=== PATIENT | male | born 1995 | race Caucasian/White ===

== ENCOUNTER 2017-11-26 20:56 | Emergency (ER) | payer OTHER ==
[~2017-11-26] VITALS: Ht 185.4 cm; Wt 83.9 kg
[2017-11-26] MEDS ORDERED: fentaNYL INJECTION 100 MCG/2 ML AMP IVP ONE (22:15)
--- NOTE | 2017-11-26 22:24 | ED Lower Extremity ---
General Chief Complaint: Lower Extremity Stated Complaint: RIGHT FOOT INJ Nursing Triage Note: pt reports he smashed his right foot between a pallet steven et a pole. swelling noted. limited rom due to swelling. Source: patient Exam Limitations: no limitations History of Present Illness Date Seen by Provider: Nov 26, 2017 Time Seen by Provider: 21:57 Initial Comments Patient presents to the emergency room with crush injury to the right foot. 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 He has significant swelling, erythema, and pain to the entire right foot. He retains sensation and movement of the toes. He is able to bear weight. He reports improvement in swelling and pain since the time of injury. Allergies and Home Medications Allergies Coded Allergies: No Known Drug Allergies (Unverified , 11/26/17) Home Medications No Active Prescriptions or Reported Meds Patient Home Medication List Home Medication List Reviewed: Yes Constitutional: no symptoms reported EENTM: no symptoms reported Respiratory: no symptoms reported Cardiovascular: no symptoms reported Gastrointestinal: no symptoms reported Genitourinary: no symptoms reported Musculoskeletal: see HPI Skin: see HPI Psychiatric/Neurological: No Symptoms Reported Past Cfrytrt-Gqydiq-Nvgkss Hx Patient Social History Alcohol Use: Denies Use Recreational Drug Use: No Smoking Status: Never a Smoker Recent Foreign Travel: No Contact w/Someone Who Travel: No Recent Infectious Disease Expo: No Recent Hopitalizations: No Seasonal Allergies Seasonal Allergies: No Surgeries History of Surgeries: No Respiratory History of Respiratory Disorde: No Cardiovascular History of Cardiac Disorders: No Neurological History of Neurological Disord: No Genitourinary History of Genitourinary Disor: No Gastrointestinal History of Gastrointestinal Di: No Musculoskeletal History of Musculoskeletal Dis: No Endocrine History of Endocrine Disorders: No HEENT History of HEENT Disorders: No Cancer History of Cancer: No Psychosocial History of Psychiatric Problem: No Integumentary History of Skin or Integumenta: No Physical Exam Vital Signs Vital Signs - First Documented 11/26/17 21:30 Temp 98.0 Pulse 77 Resp 14 B/P (MAP) 135/69 Pulse Ox 100 O2 Delivery Room Air Capillary Refill : General Appearance: WD/WN, no apparent distress HEENT: normal ENT inspection Neck: normal inspection Cardiovascular: regular rate, rhythm, no edema, no murmur Respiratory: lungs clear, normal breath sounds, no respiratory distress Legs: right leg non-tender, right leg normal inspection, right leg normal range of motion, right leg no evidence of injury Knees: right knee non-tender, right knee normal inspection, right knee normal range of motion, right knee no evidence of injury Ankles: right ankle non-tender, right ankle normal inspection, right ankle normal range of motion, right ankle no evidence of injury Feet: right foot bone tenderness (mid dorsum of foot), right foot limited range of motion, right foot pain, right foot soft tissue tenderness, right foot swelling, right foot other (There is swelling, erythema, and tenderness involving the entire right foot. Tenderness is focused over the mid dorsum area. Capillary refill and sensation are intact. Range of motion in the toes is intact.) Neurologic/Psychiatric: inspector advanced composite II-XII nml as tested, no motor/sensory deficits, alert, normal mood/affect, oriented x 3 Skin: normal color, warm/dry, other (Erythema of the foot) Progress/Results/Core Measures Results/Orders My Orders Orders - ARELIS CAMPOS MD Foot, Right, 3 View (11/26/17 22:00) Fentanyl Injection (Sublimaze Injection (11/26/17 22:15) Ibuprofen Tablet (Motrin Tablet) (11/26/17 22:30) Vital Signs/I&O Vital Sign - Last 12Hours 11/26/17 11/26/17 21:30 22:33 Temp 98.0 Pulse 77 76 Resp 14 18 B/P (MAP) 135/69 Pulse Ox 100 99 O2 Delivery Room Air Progress Note : Progress Note Patient was referred requesting ibuprofen which was administered. Occupational health paperwork was completed. Patient was fitted with crutches. Diagnostic Imaging Diagonstic Imaging: Xray Plain Films/CT/US/NM/MRI: other (Foot) Comments X-ray of the right foot viewed by me. Report not yet available. No acute abnormalities appreciated suggesting bony injury. Soft tissue swelling noted. Departure Impression Impression: Primary Impression: Crush injury of right foot Qualified Codes: S97.81XA - Crushing injury of right foot, initial encounter Disposition: HOME, SELF-CARE Condition: Improved Departure-Patient Inst. Decision time for Depature: 22:15 Referrals: NO,LOCAL PHYSICIAN (PCP) Primary Care Physician Patient Instructions: Crush Injury Add. Discharge Instructions: Elevate to the level of the heart as much as possible. Ice in 20 minute intervals. Use crutches as necessary as pain dictates. Gradually increase level of activity as pain allows. Follow-up with occupational health as soon as possible. Return to the emergency room if you have any complications. You may take ibuprofen up to 600 mg every 6 hours as needed for pain. Add Tylenol ( acetaminophen) up to 1000 mg every 6 hours as needed for additional pain relief. All discharge instructions reviewed with patient and/or family. Voiced understanding. Scripts No Active Prescriptions or Reported Meds ARELIS CAMPOS MD Nov 26, 2017 22:24
[2017-11-26] MEDS ORDERED: IBUPROFEN TABLET 200 MG TAB PO ONE (22:30)
--- NOTE | 2017-11-27 06:02 | Diagnostic Imaging Report ---
INDICATION: Foot pain. Swelling. COMPARISON: None. FINDINGS: 3 views of the right foot demonstrate no acute fracture or dislocation. There are no focal osseous lesions. There is mild to moderate soft tissue swelling. Joint spaces are well maintained. No radiopaque foreign bodies are seen. IMPRESSION: Mild to moderate soft tissue swelling of the right foot, but no radiographic evidence of acute fracture or dislocation. Dictated by: Dictated on workstation # [id number]
== END 2017-11-26 22:33 | disposition home or self-care (01) ==
LOC: ER 20:59
DX: S97.81XA Crushing injury of right foot, initial encounter (principal); W22.09XA Striking against other stationary object, initial encounter
CPT/HCPCS: 73630

== ENCOUNTER 2020-12-16 22:14 | Emergency (ER) | payer BC, OTHER ==
[~2020-12-16] VITALS: Ht 185.5 cm; Wt 79.4 kg
[2020-12-16 22:22] VITALS: BP 142/83
[2020-12-16] MEDS ORDERED: ONDANSETRON 4 MG (ZOFRAN) ORAL DISSOLVE TAB SL STA (22:29)
--- NOTE | 2020-12-16 22:35 | ED General ---
General Chief Complaint: General Problems/Pain Stated Complaint: INHALED DRY ICE - N/V HEADACHE Source of Information: Patient History of Present Illness Date Seen by Provider: Dec 16, 2020 Time Seen by Provider: 22:22 Initial Comments PT ARRIVES VIA POV FROM WORK WITH GIRLFRIEND PT STATES HE WAS AT WORK AT [employer], AND 15-20 MINUTES AGO, HE " INHALED SOME DRY ICE" AND IMMEDIATELY BEGAN HAVING NAUSEA AND VOMITING AND A HEADACHE, SOON IT HAPPENED STATES HE WAS WEARING A CLOTH MASK FROM HOME, THAT COVERED NOSE AND MOUTH AT THE TIME STATES HE WALKED BY AN AREA WHERE THEY WERE SCOOPING UP DRY ICE AND PUTTING IT ON LOPEZ AND THERE WAS "SMOKE" FROM THE DRY ICE AND HE BREATHED IN SOME OF THE "SMOKE" STATES THE AREA WAS A BIG ROOM, AND NOT A SMALL/ENCLOSED SPACE NO DIFFICULTY BREATHING OR COUGHING STATES HE HAS VOMITED 7-8 TIMES RATES HIS HEADACHE 03/24 NO DIARRHEA NO ABDOMINAL PAIN NO FEVER OR RECENT ILLNESS NO HISTORY OF SIMILAR NO ONE ELSE WITH SAME SYMPTOMS, INCLUDING CO-WORKERS--STATES CO-WORKERS THAT WERE WORKING DIRECTLY WITH THE DRY ICE, WERE WEARING SURGICAL-TYPE MASKS. ATE APPROXIMATELY 1 HOUR AGO--BEEF BURRITOS. GIRLFRIEND ATE SAME AND SHE IS NOT ILL. STATES HE WAS FINE PRIOR TO THIS DENIES ANY MEDICAL PROBLEMS PT STATES HE WAS NOT SENT HERE BY HIS WORK AND DOES NOT WANT TO FILE WITH WORKMAN'S COMP PCP: MALA Allergies and Home Medications Allergies Coded Allergies: No Known Drug Allergies (Unverified , 11/26/17) Home Medications No Active Prescriptions or Reported Meds Patient Home Medication List Home Medication List Reviewed: Yes Review of Systems Review of Systems Constitutional: no symptoms reported EENTM: no symptoms reported Respiratory: no symptoms reported Cardiovascular: no symptoms reported Gastrointestinal: see HPI; No abdominal pain, No diarrhea; nausea, vomiting Genitourinary: no symptoms reported Musculoskeletal: no symptoms reported Skin: no symptoms reported Psychiatric/Neurological: See HPI, Headache Hematologic/Lymphatic: No Symptoms Reported Immunological/Allergic: no symptoms reported Past Ycrodti-Keuuxe-Jcbtyl Hx Past Med/Social Hx: Reviewed and Corrections made Patient Social History Alcohol Use: Denies Use Drug of Choice: DENIES Smoking Status: Never a Smoker Recent Hopitalizations: No Seasonal Allergies Seasonal Allergies: No Past Medical History Surgeries: No Respiratory: No Cardiac: No Neurological: No Genitourinary: No Gastrointestinal: No Musculoskeletal: No Endocrine: No HEENT: No Cancer: No Psychosocial: No Integumentary: No Blood Disorders: No Physical Exam Vital Signs Vital Signs - First Documented 12/16/20 22:22 Temp 36.4 Pulse 76 Resp 18 B/P (MAP) 142/83 (102) Pulse Ox 96 O2 Delivery Room Air Capillary Refill : Height, Weight, BMI Height: 6'1.00" Weight: 185lbs. oz. 83.755334bs; 21.09 BMI Method:Stated General Appearance: No Apparent Distress, WD/WN, Other (FLAT AFFECT, DOES NOT MAKE EYE CONTACT. HOLDS HEAD DOWN. DOES NOT APPEAR TO BE IN ANY DISCOMFORT OR DISTRESS) HEENT: PERRL/EOMI, Normal ENT Inspection Neck: Normal Inspection Respiratory: Normal Breath Sounds, No Accessory Muscle Use, No Respiratory Distress Cardiovascular: Regular Rate, Rhythm Gastrointestinal: Non Tender, Soft Extremity: Normal Inspection Neurologic/Psychiatric: Alert, Oriented x3, No Motor/Sensory Deficits, maintenance planning clerk II- XII Norm as Tested Skin: Normal Color (PT IS ), Warm/Dry; No Rash Progress/Results/Core Measures Suspected Sepsis SIRS Temperature: Pulse: Respiratory Rate: Blood Pressure / Mean: Results/Orders My Orders Orders - VIVIANE TOMLINSON DO Ondansetron Oral Dissolve Tab (Zofran (12/16/20 22:29) Vital Signs/I&O 12/16/20 22:22 Temp 36.4 Pulse 76 Resp 18 B/P (MAP) 142/83 (102) Pulse Ox 96 O2 Delivery Room Air Capillary Refill : Progress Note : Progress Note GIVEN ZOFRAN FOR NAUSEA OFFERED INJECTION OF PAIN MEDICATION FOR HIS HEADACHE AND HE DECLINES--HE STATES "THAT'S NOT NECESSARY--IT'S NOT NEARLY BAD IT WAS" PT DECLINES ANY TESTS AT THIS TIME PT CONTINUED TO IMPROVE PT TOLERATED ICE CHIPS AND SIPS OF WATER PRIOR TO DISMISSAL Departure Impression Primary Impression: Inhalation of dry ice, initial encounter Additional Impressions: Nausea & vomiting Headache Disposition: 01 HOME, SELF-CARE Condition: Improved Departure-Patient Inst. Referrals: [facility] [place] Patient Instructions: Headache, Adult (DC), Nausea and Vomiting, Adult (DC) Add. Discharge Instructions: LOTS OF FRESH AIR HOME, REST LOTS OF CLEAR LIQUIDS--WATER, BROTH, JELLO, GATORADE TOMORROW IF YOU ARE BETTER, ADD BRATS DIET TO CLEAR LIQUIDS--BANANAS, RICE, APPLESAUCE, TOAST, SALTINES TYLENOL 1 GRAM/ MOTRIN 800 MG 4 TIMES A DAY FOR PAIN WEAR A MASK THAT IS APPROVED / SUPPLIED BY YOUR EMPLOYER IF YOU ARE GOING TO BE IN SIMILAR SITUATIONS RETURN TO ER IF SYMPTOMS WORSEN All discharge instructions reviewed with patient and/or family. Voiced understanding. Scripts No Active Prescriptions or Reported Meds VIVIANE TOMLINSON DO Dec 16, 2020 22:35
== END 2020-12-16 23:15 | disposition home or self-care (01) ==
LOC: EDUNIT# 22:14 → ER 22:17
DX: R11.2 Nausea with vomiting, unspecified (principal); R51.9 Headache, unspecified; W93 Exposure to excessive cold of man-made origin; Y92.59 Other trade areas as the place of occurrence of the external cause; Y99.0 Civilian activity done for income or pay
CPT/HCPCS: 99283